=== PATIENT | female | born 1990 | race American Indian/Alaskan Native ===

== ENCOUNTER 2016-12-21 06:12 | Emergency (ER) | payer MEDICAID ==
[2016-12-21 06:31] VITALS: BP 102/65
[2016-12-21] MEDS ORDERED: DECADRON IM ONE (07:46)
--- NOTE | 2016-12-21 07:50 | Emergency Department Report ---
ED Rash HPI - HPI Chief Complaint: Skin Rash Stated Complaint: RASH OVER BODY FROM ECZEMA Time Seen by Provider: 12/21/16 07:45 Location: Other (generalized) Suspected Cause: Other Rash Symptoms: Yes Itching, No Facial Swelling, No Tongue/Oral Swelling, No Breathing Difficulties, No Choking Sensation, No Wheezing/Dyspnea, No Peeling, No Blistering, No Fever, No Lightheaded, No Malaise, No Myalgias Severity: mild, moderate Other History: 26 year old female presents to the ED with eczema flare up. states taking otc medication with no relief. staets very ithcy and no pain ED Review of Systems ROS: Stated complaint: RASH OVER BODY FROM ECZEMA Other details as noted in HPI Constitutional: denies: chills, fever Eyes: denies: eye pain, eye discharge, vision change ENT: denies: ear pain, throat pain Respiratory: denies: cough, shortness of breath, wheezing Cardiovascular: denies: chest pain, palpitations Endocrine: no symptoms reported Gastrointestinal: denies: abdominal pain, nausea, diarrhea Genitourinary: denies: urgency, dysuria, discharge Musculoskeletal: denies: back pain, joint swelling, arthralgia Skin: rash. denies: lesions Neurological: denies: headache, weakness, paresthesias Psychiatric: denies: anxiety, depression Hematological/Lymphatic: denies: easy bleeding, easy bruising ED Past Medical Hx - Past Medical History Previous Medical History?: Yes Additional medical history: skin allergies - Surgical History Past Surgical History?: No - Social History Smoking Status: Unknown if ever smoked Substance Use Type: None - Medications Home Medications: Home Medications Medication Instructions Recorded Confirmed Last Taken Type Cimetidine [Tagamet Hb] 200 mg PO BID #12 tablet 01/07/16 Unknown Rx predniSONE [Deltasone] 50 mg PO QDAY #5 tab 01/07/16 Unknown Rx Hydrocortisone 2.5% [Hytone 2.5% 1 applicatio TP TID #1 tube 12/21/16 Unknown Rx CREAM] Rash Exam - Exam General: Vital signs noted. No distress. Alert and acting appropriately. HEENT: No Periorbital Edema, No Conjuctival Injection, No Chemosis, No Perioral Edema, No Tongue Edema, No Uvular Edema, No Compromised Airway, No Drooling Lungs: Yes Good Air Exchange (Normal Breath Sounds), No Wheezes, No Ronchi, No Stridor, No Cough, No Labored Respirations, No Retractions, No Use of Accessory Muscles, No Other Abnormal Lung Sounds Heart: Yes Regular, No Murmur Skin: Yes Other (eczematous rash. no ttp), No Urticarial Rash, No Maculopapular Rash, No Morbilliform rash, No Bulla(e), No Excoriations, No Weeping, No Tenderness, No Erythema, No Edema, No Encrustations Other: Positive: Abdomen Normal, Neurologic Normal, Musculoskeletal Normal ED Course Vital Signs 12/21/16 06:28 Temperature 97.8 F Pulse Rate 99 H Respiratory 18 Rate Blood Pressure 102/65 O2 Sat by Pulse 98 Oximetry ED Medical Decision Making - Medical Decision Making patient rash appears to be eczema. NAD at this time. VSS for DC. Critical care attestation.: If time is entered above; I have spent that time in minutes in the direct care of this critically ill patient, excluding procedure time. ED Disposition Clinical Impression: Eczema Disposition: DISCHARGED TO HOME OR SELFCARE Is pt being admited?: No Does the pt Need Aspirin: No Condition: Good Instructions: Eczema (ED) Additional Instructions: take medication as prescribed. use moisterizing lotion. Prescriptions: Hydrocortisone 2.5% [Hytone 2.5% CREAM] 1 applicatio TP TID #1 tube Referrals: PRIMARY CARE, [Primary Care Provider] - 3-5 Days Time of Disposition: 07:50
== END 2016-12-21 07:59 | disposition home or self-care (01) ==
LOC: ED 06:12
DX: L30.9 Dermatitis, unspecified (principal)
CPT/HCPCS: 96372; 99282; J1100

== ENCOUNTER 2017-03-13 18:01 | Emergency (ER) | payer MEDICAID ==
[2017-03-13] MEDS ORDERED: MOTRIN PO ONE (19:47)
[2017-03-13] MEDS ORDERED: CLEOCIN PO ONE (19:47)
--- NOTE | 2017-03-13 19:47 | Emergency Department Report ---
HPI - General Chief Complaint: Dental/Oral Time Seen by Provider: 03/13/17 19:23 - HPI HPI: Patient here reports that she's been having a toothache for 2 days. She reports facial swelling to her right face with toothache to her right lower back tooth. Denies any fever or chills. Pain is 10 over 10 and achy. She states she uses Goody powder but it didn't relieve her pain. Denies any sore throat or drooling. Denies any shortness of breath or coughing. Denies any facial pain or nasal congestion. She says she schedule appointment with dentist for 03/16/2017. Pain worsens with eating in and better with nothing ED Past Medical Hx - Past Medical History Previous Medical History?: Yes Additional medical history: skin allergies, psoriasis , eczema, Vaginal delivery 06-01-2013 - Surgical History Past Surgical History?: No - Family History Family history: no significant - Social History Smoking Status: Current Some Day Smoker Substance Use Type: Alcohol, Marijuana, Non Opiate Pain Other Social History: single - Medications Home Medications: Home Medications Medication Instructions Recorded Confirmed Last Taken Type Cimetidine [Tagamet Hb] 200 mg PO BID #12 tablet 01/07/16 Unknown Rx predniSONE [Deltasone] 50 mg PO QDAY #5 tab 01/07/16 Unknown Rx Hydrocortisone 2.5% [Hytone 2.5% 1 applicatio TP TID #1 tube 12/21/16 Unknown Rx CREAM] Acetaminophen/Codeine [Tylenol 1 tab PO Q6H PRN #15 tab 03/13/17 Unknown Rx /Codeine # 3 tab] Clindamycin [Clindamycin CAP] 300 mg PO Q8H #30 cap 03/13/17 Unknown Rx Ibuprofen [Motrin] 600 mg PO Q8H PRN #15 tablet 03/13/17 Unknown Rx ED Review of Systems ROS: Stated complaint: TOOTH PAIN Other details as noted in HPI Comment: All other systems reviewed and negative Constitutional: denies: chills, fever Eyes: denies: eye pain ENT: dental pain. denies: ear pain, throat pain, congestion Respiratory: no symptoms reported Cardiovascular: denies: chest pain, palpitations, edema, syncope Gastrointestinal: denies: abdominal pain, nausea, vomiting Skin: denies: rash Neurological: denies: headache, weakness Physical Exam - Physical Exam Vital Signs: Vital Signs 03/13/17 18:05 Temperature 98.6 F Pulse Rate 73 Respiratory 18 Rate Blood Pressure 106/72 O2 Sat by Pulse 100 Oximetry General: This is a 27-year-old female well-nourished well-developed in no acute distress. Physical Exam: Head: Normocephalic, atraumatic. No abrasions, laceration or contusion Neck: Supple, no adenopathy. Full range of motion. No C-spine tenderness. No muscular tenderness Eyes: Lateral sclera nonicteric, no conjunctival injection, bilateral pupils equal and reactive to light. Bilateral EOM intact. Ears: Bilateral TMs pearly sales, bilaterally EAC without any redness swelling or drainage. Nose: Kevin nasal mucosa without any erythema or congestion. No drainage. Mouth: Moist, no pharyngeal exudate or erythema. Uvula is midline and oral airways patent. No peritonsillar abscess and tongue is normal. Patient with multiple dental caries noted on both sides upper and lower tooth at the back. She is with dental tenderness to tooth #30-32. Mild erythema without any induration. No gingivitis noted.positive right facial swelling without erythema Lungs: Clear to auscultate to lung kaba. Normal work of breathing. Abdomen: Soft, normal bowel sounds in all quadrants. No rigidity or distention. Extremity: No clubbing, cyanosis or edema. +2 pulses in all extremities. No neurovascular compromise. Capillary refill is less than 3 seconds. Skin: Clean dry and intact, no rash or lesions. PSYCH: Smiling and appropriate for age ED Course Vital Signs 03/13/17 18:05 Temperature 98.6 F Pulse Rate 73 Respiratory 18 Rate Blood Pressure 106/72 O2 Sat by Pulse 100 Oximetry - Reevaluation(s) Reevaluation #1: 03/13/17 20:18 Patient given Motrin 800 mg in the emergency room for toothache and clindamycin 100 mg by mouth for oral cellulitis. ED Medical Decision Making - Medical Decision Making ED course: Patient here with toothache to her right lower back tooth and right facial swelling. Physical findings in for oral cellulitis, toothache, Dental caries. Patient given Motrin 800 mg by mouth in emergency room for toothache and clindamycin 300 mg to treat oral cellulitis. I discussed the patient that she needs to keep her appointment for dentist on 03/17/17 for evaluation and treatment. Patient was undescended discharge diagnosis and treatment plan and I instructed her that take medication as prescribed. Patient discharged home a prescription for clindamycin, Motrin and Tylenol 3. Critical care attestation.: If time is entered above; I have spent that time in minutes in the direct care of this critically ill patient, excluding procedure time. ED Disposition Clinical Impression: Tooth ache, Dental caries, Oral cellulitis Disposition: - TO HOME OR SELFCARE Is pt being admited?: No Does the pt Need Aspirin: No Condition: Stable Instructions: Dental Abscess (ED), Dental Caries (ED), Toothache (ED) Additional Instructions: Please keep you dentist appointment for 03/17/2017 take antibiotic as prescribed Do not drive or operate any heavy machinery while taking Tylenol No. 3 as this medication causes drowsiness. I encourage you to floss twice daily and rinse your mouth with Listerine twice daily to prevent gum disease. Prescriptions: Acetaminophen/Codeine [Tylenol /Codeine # 3 tab] 1 tab PO Q6H PRN #15 tab PRN Reason: Toothache Clindamycin [Clindamycin CAP] 300 mg PO Q8H #30 cap Ibuprofen [Motrin] 600 mg PO Q8H PRN #15 tablet PRN Reason: Pain Referrals: PRIMARY CARE,MD [Primary Care Provider] - 3-5 Days Your, Dentist [Other] - 03/17/17 (For dental care) Forms: Accompanied Note, Work/School Release Form(ED)
[2017-03-13 23:02] VITALS: BP 110/69
== END 2017-03-13 21:00 | disposition home or self-care (01) ==
LOC: ED 18:01
DX: K12.2 Cellulitis and abscess of mouth (principal); K02.9 Dental caries, unspecified; F17.210 Nicotine dependence, cigarettes, uncomplicated; F12.10 Cannabis abuse, uncomplicated
CPT/HCPCS: 99282